=== PATIENT | male | born 1995 | race Caucasian/White ===

== ENCOUNTER 2016-11-10 18:38 | Emergency (ER) | payer OTHER ==
--- NOTE | 2016-11-10 21:22 | REP ---
Clinical: Chest pain . Comparison: None . Technique: PA and lateral. Findings: The mediastinum and cardiac silhouette are normal. The lung del castillo are clear and without acute consolidation, effusion, or pneumothorax. The skeletal structures are intact and normal. Impression: 1. No acute cardiopulmonary process. Signed by Reyes Albarran MD 11/10/2016 09:14 P
--- NOTE | 2016-11-10 21:24 | EDDOCDS ---
Nurse's Notes [facility] Name: Lizandro Pa Age: 21 yrs Sex: Male : 1995 Arrival Date: 11/10/2016 Time: 18:38 Bed PR Private MD: Other - Complete Info On Cds Diagnosis: Chest pain, unspecified;Other visual disturbances Presentation: 11/10 18:41 Presenting complaint: Patient states: Pt presents stating blurry vision and chest pain dls x 2 days denies URI sx thinks sx are side effects of medication. Presenting complaint: Patient states: Clomiphene. Aspirin was not taken prior to arrival. Adult Sepsis Screening: The patient does not have new or worsening altered mentation. Patient's respiratory rate is less than 22. Systolic blood pressure is greater than 100. Patient has a qSOFA score of 0- Negative Sepsis Screen. Suicide/Homicide risk assessment- the patient denies having any suicidal and/or homicidal ideations and does not present with any other emotional, behavioral or mental health complaints. 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 Transition of care: patient was not received from another setting of care. 18:41 Acuity: NAKUL Level 4 dls 18:41 Method Of Arrival: Walkin/Carried/Asstd dls Triage Assessment: 18:46 General: Appears in no apparent distress, well nourished, well groomed, Behavior is dls cooperative. Pain: Pain currently is 2 out of 10 on a pain scale. HIV screening NA for this visit Offered previously. Historical: - Allergies: no known allergies; - Home Meds: 1. clomiphene citrate 50 mg oral tab 1 tab once daily - PMHx: low testerone; - PSHx: septoplasty; - Social history: Smoking status: Patient/guardian denies using No barriers to communication noted, The patient speaks fluent French. - Family history: Not pertinent. - : The pt / caregiver states he / she is not on anticoagulants. Home medication list is obtained from the patient. - Exposure Risk Screening:: None identified. Screenin:23 Screening information is obtained from the patient. Fall risk: No risks identified. cz Assistance ADL's: requires no assistance with activities of daily living. Abuse/DV Screen: The patient / caregiver reports he/she is: not in a situation that causes fear, pain or injury. Nutritional screening: No deficits noted. home support is adequate. Assessment: 21:23 Reassessment: Patient appears in no apparent distress at this time. Patient states cz symptoms have improved. Vital Signs: 18:39 BP 159 / 81; Pulse 109; Resp 18 S; Temp 98.3(O); Pulse Ox 100% on R/A; Weight 77.11 kg dd6 (R); Height 5 ft. 5 in. (165.10 cm) (R); Pain 4/10; 21:22 BP 145 / 73; Pulse 57; Resp 16; Temp 98.9(TE); Pulse Ox 97% on R/A; Pain 0/10; ar3 18:39 Body Mass Index 28.29 (77.11 kg, 165.10 cm) dd6 Vitals: 18:39 Log In Time: November 10, 2016 at 18:39. dd6 ED Course: 18:39 Patient visited by Binh Mccabe PCA. dd6 18:39 Other - Complete Info On Cds is Private Physician. dd6 18:39 Patient moved to Waiting dd6 18:41 Patient moved to Pre RCE dd6 18:45 Triage Initiated dls 19:08 Patient moved to PR2 / 26 jmb 19:25 Patient moved to Pre RCE ar3 19:29 EKG done. (by ED staff). Reviewed by Oli Brunner MD. jmb 20:11 Patient moved to Triage 2 jmb 20:17 Juan M Tubbs PA is PHCP. mo1 20:17 Oli Brunner MD is Attending Physician. mo1 20:40 Patient visited by Juan M Tubbs PA. mo1 20:47 Patient moved to TR3 ar3 21:02 [facility] Payment Agreement was scanned into [employer] and attached to record. gjb 21:05 Patient moved to PR1 / 25 ar3 21:22 Patient visited by Sonia Lopez PCA. ar3 21:23 The patient / caregiver is instructed regarding the plan of care and ED course. Cardiac cz monitoring not applicable on this patient. 21:23 No IV's were initiated during this patient's visit. No procedures done that require cz assistance. Order Results: There are currently no results for this order. Outcome: 21:18 Discharge ordered by Provider. mo1 21:22 Discharge Assessment: Patient awake, alert and oriented x 3. No cognitive and/or cz functional deficits noted. Patient verbalized understanding of disposition instructions. patient administered narcotics - no. The following High Risk Discharge criteria are identified: None. Discharged to home ambulatory. Condition: stable. Discharge instructions given to patient, Instructed on discharge instructions, follow up and referral plans. Demonstrated understanding of instructions, Pt was receptive of discharge instructions/ teaching. No special radiology studies were completed. Property :Personal belongings accompany Pt. 21:24 Patient left the ED. cz Signatures: Maria Isabel Back, RN RN Mundo Ram RN RN Binh Keenan, TERADATA ARCHITECT TERADATA ARCHITECT dd6 Sonia Lopez, TERADATA ARCHITECT TERADATA ARCHITECT ar3 Juan M Tubbs PA PA mo1 Mayank Sevilla,RN Tessa Cabello MTDD
--- NOTE | 2016-11-10 21:24 | EDDOCDS ---
Physician Documentation [facility] Name: Lizandro Pa Age: 21 yrs Sex: Male : 1995 Arrival Date: 11/10/2016 Time: 18:38 Bed PR Private MD: Other - Complete Info On Cds Disposition: 11/10/16 21:18 Discharged to Home/Self Care. Impression: Chest pain, unspecified, Other visual disturbances. - Condition is Stable. - Discharge Instructions: Nonspecific Chest Pain, Visual Disturbances. - Medication Reconciliation, Local Pharmacy Hours form. - Follow up: Private Physician; When: Call to arrange an appointment; Reason: Recheck today's complaints, Continuance of care. - Problem is new. - Symptoms are unchanged. Historical: - Allergies: no known allergies; - Home Meds: 1. clomiphene citrate 50 mg oral tab 1 tab once daily - PMHx: low testerone; - PSHx: septoplasty; - Social history: Smoking status: Patient/guardian denies using No barriers to communication noted, The patient speaks fluent Turkmen. - Family history: Not pertinent. - : The pt / caregiver states he / she is not on anticoagulants. Home medication list is obtained from the patient. - Exposure Risk Screening:: None identified. Vital Signs: 11/10 18:39 BP 159 / 81; Pulse 109; Resp 18 S; Temp 98.3(O); Pulse Ox 100% on R/A; Weight 77.11 kg dd6 / 170 lbs (R); Height 5 ft. 5 in. (165.10 cm) (R); Pain 4/10; 21:22 BP 145 / 73; Pulse 57; Resp 16; Temp 98.9(TE); Pulse Ox 97% on R/A; Pain 0/10; ar3 18:39 Body Mass Index 28.29 (77.11 kg, 165.10 cm) dd6 MDM: 19:09 ECG WITH READING ER PHYS+CARDIAG ordered. EDMS 20:47 Chest, 2 View (pa\E\lat) Ordered. EDMS 21:02 [facility] Payment Agreement was scanned into [employer] and attached to record. [facility] 21:02 Financial registration complete. [facility] Signatures: Dispatcher [employer] EDMS Maria Isabel Back RN RN dls Zecher, Calvin, RN RN cz Juan M Tubbs PA PA mo1 Tessa Rain The chart was reviewed and I authenticate all verbal orders and agree with the evaluation and treatment provided.Attachments: 21:02 [facility] Payment Agreement percy MTDD
--- NOTE | 2016-11-11 08:12 | ECGEPIP ---
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
--- NOTE | 2016-11-12 22:24 | EDDOCDS ---
Nurse's Notes [facility] Name: Lizandro Brenner Age: 21 yrs Sex: Male : 1995 Arrival Date: 11/10/2016 Time: 18:38 Bed PR Private MD: Other - Complete Info On Cds Diagnosis: Chest pain, unspecified;Other visual disturbances Presentation: 11/10 18:41 Presenting complaint: Patient states: Pt presents stating blurry vision and chest pain dls x 2 days denies URI sx thinks sx are side effects of medication. Presenting complaint: Patient states: Clomiphene. Aspirin was not taken prior to arrival. Adult Sepsis Screening: The patient does not have new or worsening altered mentation. Patient's respiratory rate is less than 22. Systolic blood pressure is greater than 100. Patient has a qSOFA score of 0- Negative Sepsis Screen. Suicide/Homicide risk assessment- the patient denies having any suicidal and/or homicidal ideations and does not present with any other emotional, behavioral or mental health complaints. 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 Transition of care: patient was not received from another setting of care. 18:41 Acuity: NAKUL Level 4 dls 18:41 Method Of Arrival: Walkin/Carried/Asstd dls Triage Assessment: 18:46 General: Appears in no apparent distress, well nourished, well groomed, Behavior is dls cooperative. Pain: Pain currently is 2 out of 10 on a pain scale. HIV screening NA for this visit Offered previously. Historical: - Allergies: no known allergies; - Home Meds: 1. clomiphene citrate 50 mg oral tab 1 tab once daily - PMHx: low testerone; - PSHx: septoplasty; - Social history: Smoking status: Patient/guardian denies using No barriers to communication noted, The patient speaks fluent Latvian. - Family history: Not pertinent. - : The pt / caregiver states he / she is not on anticoagulants. Home medication list is obtained from the patient. - Exposure Risk Screening:: None identified. Screenin:23 Screening information is obtained from the patient. Fall risk: No risks identified. cz Assistance ADL's: requires no assistance with activities of daily living. Abuse/DV Screen: The patient / caregiver reports he/she is: not in a situation that causes fear, pain or injury. Nutritional screening: No deficits noted. home support is adequate. Assessment: 21:23 Reassessment: Patient appears in no apparent distress at this time. Patient states cz symptoms have improved. Vital Signs: 18:39 BP 159 / 81; Pulse 109; Resp 18 S; Temp 98.3(O); Pulse Ox 100% on R/A; Weight 77.11 kg dd6 (R); Height 5 ft. 5 in. (165.10 cm) (R); Pain 4/10; 21:22 BP 145 / 73; Pulse 57; Resp 16; Temp 98.9(TE); Pulse Ox 97% on R/A; Pain 0/10; ar3 18:39 Body Mass Index 28.29 (77.11 kg, 165.10 cm) dd6 Vitals: 18:39 Log In Time: November 10, 2016 at 18:39. dd6 ED Course: 18:39 Patient visited by Binh Mccabe PCA. dd6 18:39 Other - Complete Info On Cds is Private Physician. dd6 18:39 Patient moved to Waiting dd6 18:41 Patient moved to Pre RCE dd6 18:45 Triage Initiated dls 19:08 Patient moved to PR2 / 26 jmb 19:25 Patient moved to Pre RCE ar3 19:29 EKG done. (by ED staff). Reviewed by Oli Brunner MD. jmb 20:11 Patient moved to Triage 2 jmb 20:17 Juan M Tubbs PA is PHCP. mo1 20:17 Oli Brunner MD is Attending Physician. mo1 20:40 Patient visited by Juan M Tubbs PA. mo1 20:47 Patient moved to TR3 ar3 21:02 [facility] Payment Agreement was scanned into [employer] and attached to record. gjb 21:05 Patient moved to PR1 / 25 ar3 21:22 Patient visited by Sonia Lopez PCA. ar3 21:23 The patient / caregiver is instructed regarding the plan of care and ED course. Cardiac cz monitoring not applicable on this patient. 21:23 No IV's were initiated during this patient's visit. No procedures done that require cz assistance. 21:39 Chest, 2 View (pa\E\lat) Returned. EDMS 23:26 Patient name changed from Lizandro\S\\S\Brenner\S\ to Lizandro\S\ \S\Brenner. EDMS 11/11 05:43 T-Sheet-- Draft Copy was scanned into [employer] and attached to record. lja 08:36 EKG-ADULT Returned. EDMS 10:55 ECG/EKG was scanned into [employer] and attached to record. 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; : 1995 Requested By: Oli Costello; Order Number: [id number] Reading MD: Vaishnavi Mark; Measurements; Intervals [place]; Rate: 77 P: 51; RI: 144 QRS: 49; QRSD: 102 T: 38; QT: 363; QTc: 411; Interpretive Statements; SINUS RHYTHM; INCOMPLETE RIGHT BUNDLE BRANCH BLOCK; NO PRIOR FOR COMPARISON; Electronically Signed On 11-11-2016 8:12:35 EST by Vaishnavi Mark; Radiology Order: Chest, 2 View (pa\E\lat) Test: Chest, 2 View (pa\E\lat) REASON FOR EXAMINATION: Chest Pain; Clinical: Chest pain .; ; Comparison: None .; ; Technique: PA and lateral.; ; Findings:; The mediastinum and cardiac silhouette are normal. The lung del castillo are clear and; without acute consolidation, effusion, or pneumothorax. The skeletal structures; are intact and normal.; ; Impression:; 1. No acute cardiopulmonary process.; ; ; Signed by; Reyes Albarran MD 11/10/2016 09:14 P; Outcome: 11/10 21:18 Discharge ordered by Provider. mo1 21:22 Discharge Assessment: Patient awake, alert and oriented x 3. No cognitive and/or cz functional deficits noted. Patient verbalized understanding of disposition instructions. patient administered narcotics - no. The following High Risk Discharge criteria are identified: None. Discharged to home ambulatory. Condition: stable. Discharge instructions given to patient, Instructed on discharge instructions, follow up and referral plans. Demonstrated understanding of instructions, Pt was receptive of discharge instructions/ teaching. No special radiology studies were completed. Property :Personal belongings accompany Pt. 21:24 Patient left the ED. cz Signatures: Dispatcher [employer] EDMaria Isabel Bravo, RN Mundo Nascimento RN RN Monique Waters, Reg Reg gb Binh Mccabe, STRIPPER PRELIMINARY STRIPPER PRELIMINARY dd6 Sonia Lopez, STRIPPER PRELIMINARY STRIPPER PRELIMINARY ar3 Juan M Tubbs PA PA mo1 Becker, Joshua,YOUSUF Talbert, Tessa Farr Chart Complete MTDD
--- NOTE | 2016-11-12 22:24 | EDDOCDS ---
Physician Documentation [facility] Name: Lizandro Pa Age: 21 yrs Sex: Male : 1995 Arrival Date: 11/10/2016 Time: 18:38 Bed PR Private MD: Other - Complete Info On Cds Disposition: 11/10/16 21:18 Discharged to Home/Self Care. Impression: Chest pain, unspecified, Other visual disturbances. - Condition is Stable. - Discharge Instructions: Nonspecific Chest Pain, Visual Disturbances. - Medication Reconciliation, Local Pharmacy Hours form. - Follow up: Private Physician; When: Call to arrange an appointment; Reason: Recheck today's complaints, Continuance of care. - Problem is new. - Symptoms are unchanged. Historical: - Allergies: no known allergies; - Home Meds: 1. clomiphene citrate 50 mg oral tab 1 tab once daily - PMHx: low testerone; - PSHx: septoplasty; - Social history: Smoking status: Patient/guardian denies using No barriers to communication noted, The patient speaks fluent Turkmen. - Family history: Not pertinent. - : The pt / caregiver states he / she is not on anticoagulants. Home medication list is obtained from the patient. - Exposure Risk Screening:: None identified. Vital Signs: 11/10 18:39 BP 159 / 81; Pulse 109; Resp 18 S; Temp 98.3(O); Pulse Ox 100% on R/A; Weight 77.11 kg dd6 / 170 lbs (R); Height 5 ft. 5 in. (165.10 cm) (R); Pain 4/10; 21:22 BP 145 / 73; Pulse 57; Resp 16; Temp 98.9(TE); Pulse Ox 97% on R/A; Pain 0/10; ar3 18:39 Body Mass Index 28.29 (77.11 kg, 165.10 cm) dd6 MDM: 19:09 ECG WITH READING ER PHYS+CARDIAG ordered. EDMS 20:47 Chest, 2 View (pa\E\lat) Ordered. EDMS 21:02 [facility] Payment Agreement was scanned into [employer] and attached to record. gjb 21:02 Financial registration complete. gjmariaa 11/11 05:43 T-Sheet-- Draft Copy was scanned into [employer] and attached to record. lja 10:55 ECG/EKG was scanned into [employer] and attached to record. irineo Signatures: Dispatcher [employer] Maria Isabel Johnson RN RN dls Zecher, Calvin, RN RN cz Barnhardt, Gloria, Reg Reg gb Juan M Tubbs PA PA mo1 Arel, Tessa Farr The chart was reviewed and I authenticate all verbal orders and agree with the evaluation and treatment provided.Attachments: 11/10 21:02 [facility] Payment Agreement gjb 11/11 05:43 T-Sheet-- Draft Copy [facility] 10:55 ECG/EKG Chart Complete MTDD
--- NOTE | 2016-11-12 22:24 | EDDOCDS ---
Physician Documentation [facility] Name: Lizandro Pa Age: 21 yrs Sex: Male : 1995 Arrival Date: 11/10/2016 Time: 18:38 Bed PR Private MD: Other - Complete Info On Cds Disposition: 11/10/16 21:18 Discharged to Home/Self Care. Impression: Chest pain, unspecified, Other visual disturbances. - Condition is Stable. - Discharge Instructions: Nonspecific Chest Pain, Visual Disturbances. - Medication Reconciliation, Local Pharmacy Hours form. - Follow up: Private Physician; When: Call to arrange an appointment; Reason: Recheck today's complaints, Continuance of care. - Problem is new. - Symptoms are unchanged. Historical: - Allergies: no known allergies; - Home Meds: 1. clomiphene citrate 50 mg oral tab 1 tab once daily - PMHx: low testerone; - PSHx: septoplasty; - Social history: Smoking status: Patient/guardian denies using No barriers to communication noted, The patient speaks fluent Divehi. - Family history: Not pertinent. - : The pt / caregiver states he / she is not on anticoagulants. Home medication list is obtained from the patient. - Exposure Risk Screening:: None identified. Vital Signs: 11/10 18:39 BP 159 / 81; Pulse 109; Resp 18 S; Temp 98.3(O); Pulse Ox 100% on R/A; Weight 77.11 kg dd6 / 170 lbs (R); Height 5 ft. 5 in. (165.10 cm) (R); Pain 4/10; 21:22 BP 145 / 73; Pulse 57; Resp 16; Temp 98.9(TE); Pulse Ox 97% on R/A; Pain 0/10; ar3 18:39 Body Mass Index 28.29 (77.11 kg, 165.10 cm) dd6 MDM: 19:09 ECG WITH READING ER PHYS+CARDIAG ordered. EDMS 20:47 Chest, 2 View (pa\E\lat) Ordered. EDMS 21:02 [facility] Payment Agreement was scanned into [employer] and attached to record. gjb 21:02 Financial registration complete. [email or web address] 11/11 05:43 T-Sheet-- Draft Copy was scanned into [employer] and attached to record. lja 10:55 ECG/EKG was scanned into [employer] and attached to record. irineo Signatures: Dispatcher [employer] Maria Isabel Johnson RN RN dls Zecher, Calvin, RN RN cz Barnhardt, Gloria, Reg Reg gb Juan M Tubbs PA PA mo1 Arel, Tessa Farr The chart was reviewed and I authenticate all verbal orders and agree with the evaluation and treatment provided.Attachments: 11/10 21:02 [facility] Payment Agreement gjb 11/11 05:43 T-Sheet-- Draft Copy [facility] 10:55 ECG/EKG Chart Complete MTDD
== END 2016-11-10 21:24 | disposition home or self-care (01) ==
LOC: M ED 18:38
DX: H53.9 Unspecified visual disturbance (principal); R07.89 Other chest pain; E29.1 Testicular hypofunction; Z79.899 Other long term (current) drug therapy

== ENCOUNTER → 2016-11-19 | Outpatient (REF) | payer OTHER ==
[2016-11-19 10:15] LABS: SPERM ABNORMAL FORMS WBC'S NOTED
[2016-11-19 10:16] LABS: % NORMAL FORMS 9 % (>=4); IMMOTILITY 38 %; NON PROGRESSIVE MOTILITY (c) 23 %; PROGRESSIVE MOTILITY (a) 39 % (>=32); SPERM# 61.6 M/Ejac (33-46); TOTAL FUNCTIONAL 5.3 M/Ejac.; TOTAL MOTILITY 62 % (>=40); TOTAL PROGRESSIVE SPERM 24.2 M/Ejac.
== END ==
LOC: M SMT 09:59
PROVIDERS: ATTEND Urology
DX: N46.9 Male infertility, unspecified (principal)

== ENCOUNTER → 2016-11-19 | Outpatient (CLI) | payer OTHER | LOC: M LAB 10:50 | PROVIDERS: ATTEND Urology | DX: N46.9 Male infertility, unspecified (principal) ==

== ENCOUNTER → 2017-03-09 | Outpatient (CLI) | payer OTHER ==
[2017-03-09 11:35] LABS: IMMOTILITY 5 %; NON PROGRESSIVE MOTILITY (c) 13 %; PROGRESSIVE MOTILITY (a) 82 % (>=32); SPERM ABNORMAL FORMS WBC'S NOTED; TOTAL MOTILITY 95 % (>=40)
[2017-03-09 11:36] LABS: % NORMAL FORMS 22 % (>=4); SPERM# 82.2 M/Ejac (33-46); TOTAL FUNCTIONAL 28.8 M/Ejac.; TOTAL PROGRESSIVE SPERM 67.6 M/Ejac.
== END ==
LOC: M LAB 11:10
PROVIDERS: ATTEND Urology
DX: N46.9 Male infertility, unspecified (principal)